=== PATIENT | female | born 1995 | race Two or more races ===

== ENCOUNTER → 2021-06-01 | Outpatient (REF) | payer OTHER ==
[2021-06-01 22:23] LABS: GC DNA AMPLIFICATION NEGATIVE (NEGATIVE)
== END ==
LOC: M SFHCWAGY 17:00
PROVIDERS: ATTEND Obstetrics & Gynecology
DX: Z01.419 Encounter for gynecological examination (general) (routine) without abnormal findings (principal); Z12.4 Encounter for screening for malignant neoplasm of cervix; Z11.3 Encounter for screening for infections with a predominantly sexual mode of transmission; Z30.011 Encounter for initial prescription of contraceptive pills
CPT/HCPCS: 87661; G0123; G0463

== ENCOUNTER → 2021-12-14 | Outpatient (CLI) | payer OTHER | LOC: M PLALAB 14:10 | PROVIDERS: ATTEND Obstetrics & Gynecology | DX: Z34.01 Encounter for supervision of normal first pregnancy, first trimester (principal) ==

== ENCOUNTER → 2022-02-12 | Outpatient (CLI) | payer OTHER | LOC: M WHC 11:31 | PROVIDERS: ATTEND Obstetrics & Gynecology | DX: O32.8XX0 Maternal care for other malpresentation of fetus, not applicable or unspecified (principal); Z3A.21 21 weeks gestation of pregnancy ==

== ENCOUNTER → 2022-03-18 | Outpatient (CLI) | payer OTHER | LOC: M WHC 12:05 | PROVIDERS: ATTEND Advanced Practice Midwife | DX: Z34.02 Encounter for supervision of normal first pregnancy, second trimester (principal); Z3A.27 27 weeks gestation of pregnancy ==

== ENCOUNTER → 2022-04-12 | Outpatient (CLI) | payer OTHER ==
[2022-04-13 08:27] LABS: HEMATOCRIT 34.2 % (36.0-47.0); HEMOGLOBIN 11.4 g/dl (12.0-15.5); MEAN CORPUSCULAR HEMOGLOBIN 29.9 pg (27.0-33.0); MEAN CORPUSCULAR HGB CONC 33.3 g/dl (32.0-36.5); MEAN CORPUSCULAR VOLUME 89.8 fl (80.0-96.0); PLATELET COUNT, AUTOMATED 275 10^3/uL (150-450); RED BLOOD COUNT 3.81 10^6/uL (4.00-5.40); WHITE BLOOD COUNT 11.1 10^3/uL (4.0-10.0)
[2022-04-13 10:08] LABS: GC DNA AMPLIFICATION NEGATIVE (NEGATIVE)
[2022-04-13 10:40] LABS: HEPATITIS C VIRUS ABY INDEX < 0.0 INDEX (<0.8); HIV 1&2 SCREEN CENTAUR NEGATIVE (NEGATIVE)
== END ==
LOC: M PLALAB 13:57
PROVIDERS: ATTEND Obstetrics & Gynecology
DX: Z34.01 Encounter for supervision of normal first pregnancy, first trimester (principal)

== ENCOUNTER → 2022-04-12 | Outpatient (CLI) | payer OTHER | LOC: M PLALAB 13:59 | PROVIDERS: ATTEND Advanced Practice Midwife | DX: Z34.02 Encounter for supervision of normal first pregnancy, second trimester (principal) ==

== ENCOUNTER → 2022-04-20 | Outpatient (CLI) | payer OTHER | LOC: M LAB 07:10 | PROVIDERS: ATTEND Advanced Practice Midwife | DX: O99.810 Abnormal glucose complicating pregnancy (principal) ==

== ENCOUNTER → 2022-04-26 | Outpatient (REF) | payer OTHER | LOC: M PLALAB 09:37 | PROVIDERS: ATTEND Advanced Practice Midwife | DX: O24.419 Gestational diabetes mellitus in pregnancy, unspecified control (principal); Z3A.31 31 weeks gestation of pregnancy | CPT/HCPCS: 87086; G0463 ==

== ENCOUNTER → 2022-05-26 | Outpatient (REF) | payer OTHER | LOC: M SFHCWAGY 09:53 | PROVIDERS: ATTEND Obstetrics & Gynecology | DX: O24.410 Gestational diabetes mellitus in pregnancy, diet controlled (principal); Z3A.00 Weeks of gestation of pregnancy not specified ==

== ENCOUNTER → 2022-05-28 | Outpatient (CLI) | payer OTHER | LOC: M WHC 15:32 | PROVIDERS: ATTEND Obstetrics & Gynecology | DX: O24.410 Gestational diabetes mellitus in pregnancy, diet controlled (principal); Z3A.37 37 weeks gestation of pregnancy ==

== ENCOUNTER 2022-05-29 22:24 | Outpatient (CLI) | payer OTHER ==
[~2022-05-29] VITALS: Ht 160 cm; Wt 93.3 kg
[2022-05-29 22:46] VITALS: BP 137/87
== END 2022-05-29 23:55 | disposition home or self-care (01) ==
LOC: M LDO 22:24
PROVIDERS: ATTEND Obstetrics & Gynecology
DX: O26.893 Other specified pregnancy related conditions, third trimester (principal); N89.8 Other specified noninflammatory disorders of vagina; Z3A.36 36 weeks gestation of pregnancy
CPT/HCPCS: 59025; G0378; G0463